=== PATIENT | male | born 1975 | race African-American/Black ===

== ENCOUNTER 2020-03-30 22:12 | Emergency (ER) | payer SELFPAY ==
--- NOTE | ~2020-03-30 | XR_ITS ---
EXAMINATION: XR chest 2V 03/30/2020 23:20 INDICATION: Cough and dyspnea PROCEDURE: 2 view chest COMPARISON: No prior studies for comparison. FINDINGS: The lungs are clear. The cardiomediastinal silhouette is within normal limits. There are no pleural effusions. There is no pneumothorax suspected. IMPRESSION: 1: NO ACUTE CARDIOPULMONARY DISEASE. Reviewed, dictated and finalized at location A.
[2020-03-30 22:11] VITALS: BP 195/116; PULSE 120; RESP 19; TEMP 36.3; O2SAT 100
--- NOTE | 2020-03-30 22:14 | ECG_ITS ---
Measurements Intervals [place] Rate: 123 P: 66 [place]: 104 QRS: 72 QRSD: 81 T: 36 QT: 308 QTc: 442 Interpretive Statements SINUS TACHYCARDIA WITH SHORT [place] INTERVAL ABNORMAL ECG Electronically Signed On 03-31-2020 11:14:16 CDT by Phong Osborne D.O.
--- NOTE | 2020-03-30 22:35 | ED.URI ---
HPI - URI/Sore Throat General Chief Complaint: Upper Respiratory Infection Stated Complaint: cough Time Seen by Provider: 03/30/20 22:35 Source: patient Mode of arrival: ambulatory Limitations: no limitations History of Present Illness HPI Narrative: Patient is a 44-year-old male who presents for evaluation of cough. Patient reports a daily productive cough that seems to have gotten worse over the past several days. He reports shortness of breath with exertion. He denies any chest pain or palpitations. Patient is a cigarette and marijuana smoker daily. He denies any history of lung disorders, asthma or COPD. He denies fever or chills. He does report rhinorrhea and sore throat. Related Data Allergies Allergy/AdvReac Type Severity Reaction Status Date / Time No Known Allergies Allergy Verified 03/31/20 00:03 Review of Systems Review of Systems: Narrative: CONSTITUTIONAL: Denies fever CARDIOVASCULAR: Denies chest pain RESPIRATORY: Reports cough and shortness of breath GASTROINTESTINAL: Denies abdominal pain SKIN: Denies rash MUSCULOSKELETAL: Denies back pain NEUROLOGIC: Denies headache [facility] Surgical History Surgical History H/O adenoidectomy Social History Social History (Updated 03/30/20 @ 23:07 by Grace Ngo MD) Smoking status: Current every day smoker Tobacco type: cigarettes Alcohol intake: never Substance use: current Substance use type: marijuana Gender identity (if verbalized by the patient): Male Exam Narrative: Exam Narrative: GENERAL: Awake, alert, conversant HEAD: Normocephalic, atraumatic. EYES: PERRLA and EOMI. ENT: Nares clear, no rhinorrhea or epistaxis. Mucous membranes moist. Erythema of the oropharynx. Bilateral tonsillar edema with white exudate on left tonsil. NECK: Supple. CHEST: No respiratory distress, breathing even and non labored, no wheezing, no crackles, no coarse breath sounds HEART: Tachycardic rate, sinus rhythm ABDOMEN:Non distended, non tender EXTREMITIES: Normal range of motion. No edema. SKIN: Warm, dry, no rash. NEURO:No focal deficits. Alert and oriented x3 Course Vital Signs Vital signs: Vital Signs Temperature 36.3 C L 03/30/20 22:11 Pulse Rate 120 H 03/30/20 22:11 Respiratory Rate 19 03/30/20 22:11 Blood Pressure 195/116 H 03/30/20 22:11 Pulse Oximetry 100 03/30/20 22:11 Temperature 36.3 C L 03/30/20 22:11 Pulse Rate 115 H 03/30/20 23:44 Respiratory Rate 19 03/30/20 23:44 Blood Pressure 175/98 H 03/30/20 23:44 Pulse Oximetry 97 03/30/20 23:44 MDM - URI/Sore Throat MDM Narrative Medical decision making narrative: Patient presenting for evaluation of sore throat, cough, reporting some shortness of breath with exertion, but no wheezing, no hypoxemia on exam. Patient is tachycardic, otherwise afebrile. Apparently, patient was recently released from shelter today. On exam, his tonsils are edematous, erythematous with white exudate which is concerning for strep pharyngitis. He does have a positive group A strep test. He has a concurrent leukocytosis likely related to the infection. Patient was given IV fluids, is able to tolerate oral intake and we will treat his infection with antibiotics. No signs of pneumonia on exam. No COVID type features. No hypoxemia. No electrolyte derangement or acute kidney injury. No evidence of ischemic changes on EKG. Given no chest pain or other anginal symptoms with a nidus of infection, patient was discharged home. Differential Diagnosis Differential diagnosis: Likely upper respiratory infection, sinusitis and viral infection Lab Data Attestation: I reviewed the patient's lab results. Result diagrams: 03/30/20 23:11 03/30/20 23:11 Labs: Lab Results 03/30/20 03/30/20 03/30/20 Range/Units 23:11 23:11 23:47 WBC 15.9 H (4.5-10.0) K/mm3 RBC 5.37 (4.6-6.20) M/mm3 Hgb 13.5 L (14.0
[2020-03-30] MEDS: SODIUM CHLORIDE 0.9% IV 1,000 ML 999 ML IV CONT (23:12)
[2020-03-30 23:19] LABS: Basophils Absolute Auto 0.1 K/mm3 (0.0-0.1); Basophils Percent Auto 0.6 % (0.2-1.2); Eosinophils Percent Auto 0.2 % (0-4.4); Hematocrit 39.6 % (42.0-52.0); Hemoglobin 13.5 g/dL (14.0-18.0); Immature Granulocyte Absolute 0.06 K/mm3 (0.00-0.031); Immature Granulocyte Percent A 0.4 % (0-0.5); Lymphocytes Absolute Auto 1.29 K/mm3 (0.9-3.2); Lymphocytes Percent Auto 8.1 % (18.3-44.2); Mean Corpuscular HGB Conc 34.1 g/dl (32-36); Mean Corpuscular Hemoglobin 25.1 pg (26-34); Mean Corpuscular Volume 73.7 fl (80-100); Mean Platelet Volume 9.8 fl (7.4-10.4); Monocytes Absolute Auto 1.1 K/mm3 (0.1-0.6); Monocytes Percent Auto 7.1 % (2.6-8.5); Neutrophils Absolute Auto 13.3 K/mm3 (1.3-6.7); Neutrophils Percent Auto 83.6 % (45.5-73.1); Platelet Count Result 448 k/mm3 (150-375); Red Blood Count 5.37 M/mm3 (4.6-6.20); Red Cell Distribution Width 14.4 % (11.5-14.5); White Blood Count 15.9 K/mm3 (4.5-10.0)
[2020-03-30 23:35] LABS: Anion Gap 11 mmol/L (8-16); Blood Urea Nitrogen 12 mg/dL (9-20); Calcium 9.1 mg/dL (8.4-10.2); Carbon Dioxide 25 mmol/L (22-30); Chloride 99 mmol/L (98-107); Estimated CRCL calculation 100 ml/min; Estimated Glomerular Filt Rate > 60; Glucose 107 mg/dL (75-110); Potassium 3.9 mmol/L (3.4-5.0); Sodium 135 mmol/L (137-145)
[2020-03-30 23:44] VITALS: BP 175/98; PULSE 115; RESP 19; O2SAT 100; O2SAT 97
[2020-03-31 00:03] LABS: Add Urine Microscopic? YES; Appearance Urine Clear (Clear); Bacteria Urine Trace /hpf; Bilirubin Urine Negative (Negative); Blood Urine Negative (Negative); Color Urine Yellow (Yellow); Glucose Urine UA Negative (Negative); Ketones Urine Negative (Negative); Leukocyte Esterase Ur Negative LEU/UL (Negative); Mucus Urine Few /lpf; Nitrate Urine Negative (Negative); Protein Urine Negative (Negative); RBC Urine 0-2 /hpf (0-2); Specific Grav Ur 1.012 (1.001-1.035); Squamous Epithelial Cell Urine Rare /hpf (Few); WBC Urine 0-3 /hpf
[2020-03-31 00:22] LABS: Barbiturate Screen Urine Negative (Negative); Benzodiazepines Screen Urine Negative (Negative)
[2020-03-31 00:31] LABS: Cannabinoid Screen Urine Positive (Negative); Cocaine Screen Urine Negative (Negative); Methadone Screen Urine Negative (Negative); Opiate Screen Urine Negative (Negative); Phencyclidine Screen Urine Negative (Negative)
[2020-03-31 00:32] VITALS: BP 174/99; PULSE 101; RESP 20; TEMP 36.3; O2SAT 100
[2020-03-31 00:32] LABS: Amphetamine Screen Urine Positive (Negative)
[2020-03-31] MEDS: PENICILLIN G BENZATHINE 1,200,000 UNITS/2 ML SYRINGE 1200000 UNITS IM (00:32)
== END 2020-03-31 00:33 | disposition home or self-care (01) ==
PROVIDERS: Emergency Provider Emergency Medicine
DX: J02.0 Streptococcal pharyngitis (principal); R00.0 Tachycardia, unspecified; F17.210 Nicotine dependence, cigarettes, uncomplicated
CPT/HCPCS: 36415; 71046; 80048; 80307; 81001; 85025; 87880; 93005; 96360; 96372; 99283; J0561; J7030